=== PATIENT | male | born 1980 ===

== ENCOUNTER 2024-05-28 11:14 | Day surgery (SDC) | payer OTHER ==
[~2024-05-28] VITALS: Ht 188 cm; Wt 105.0 kg
[~2024-05-28 11:14] MED LIST: Lactated Ringer's 1,000 ML IV ONE; propofoL 50 ML IV ONE
[2024-05-28] MEDS ORDERED: LOSA25 (11:35)
[2024-05-28] MEDS ORDERED: Lactated Ringer's 1,000 ML IV ONE (12:00)
[2024-05-28] MEDS ORDERED: Midazolam HCL 1 MG/ML 5MLVIAL ONE (12:22)
== END 2024-05-28 13:22 | disposition home or self-care (01) ==
LOC: ORSCSDS 11:14
PROVIDERS: Internal Medicine Gastroenterology
PROC: 0DBB8ZX Excision of Ileum, Via Natural or Artificial Opening Endoscopic, Diagnostic (ICD-10-PCS; principal; 2024-05-28 13:30)
DX: K91.850 Pouchitis (principal); I10 Essential (primary) hypertension; F20.9 Schizophrenia, unspecified; Z87.891 Personal history of nicotine dependence; Z79.899 Other long term (current) drug therapy
CPT/HCPCS: 88305; J2250; J2704; J7120

== ENCOUNTER 2025-05-27 11:35 | Day surgery (SDC) | payer OTHER ==
[~2025-05-27] VITALS: Ht 188 cm; Wt 106.5 kg
[~2025-05-27 11:35] MED LIST changes: +LOSA25; -Lactated Ringer's 1,000 ML IV ONE; -propofoL 50 ML IV ONE
[2025-05-27] MEDS ORDERED: Midazolam HCL 1 MG/ML 5MLVIAL ONE (12:12)
== END 2025-05-27 13:09 | disposition home or self-care (01) ==
LOC: ORSCSDS 11:35
PROVIDERS: Internal Medicine Gastroenterology
PROC: 0DB88ZX Excision of Small Intestine, Via Natural or Artificial Opening Endoscopic, Diagnostic (ICD-10-PCS; principal; 2025-05-27 13:00)
DX: K91.850 Pouchitis (principal); Z87.891 Personal history of nicotine dependence
CPT/HCPCS: 88305; J2250; J2704; J7120